=== PATIENT | female | born 1960 | race Caucasian/White ===

== ENCOUNTER 2018-08-14 08:22 | Emergency (ER) | payer MEDICARE, MEDICAID ==
[~2018-08-14] VITALS: Ht 165.1 cm; Wt 68.2 kg
[~2018-08-14 08:22] MED LIST: CYMBALTA30 MG PO; DESERYL100 MG PO; DURAGESIC1 PATCH .2 TRANSDERM; KLONOPIN1 MG PO; OXYCONTIN30 MG PO; VISTARIL50 MG PO
[2018-08-14 08:26] VITALS: BP 127/80; Ht 165.1 cm; Wt 68.2 kg
[2018-08-14 08:55] LABS: BASOPHILS 0.4 % (0-2); EOSINOPHILS 2.8 % (0-7); HEMATOCRIT 41.3 % (36.0-48.0); HEMOGLOBIN 14.2 g/dL (12-16); IMMATURE GRANULOCYTES 0.3 % (0-5); LYMPHOCYTES 28.8 % (15-50); MCH 29.6 pg (26.0-34.0); MCHC 34.4 g/dL (31.0-37.0); MEAN PLATELET VOLUME 9.3 fL (7.4-10.4); MONOCYTES 7.4 % (2-11); NEUTROPHILS 60.3 % (40-80); RDW 13.6 % (11.5-14.5); WBC 7.3 10x3/uL (4.8-10.8)
[2018-08-14 08:56] LABS: PLATELET COUNT 249 10x3/uL (130-400)
[2018-08-14 09:20] LABS: ALBUMIN 3.9 g/dL (3.4-5.0); ALKALINE PHOSPHATASE 108 U/L (46-116); ALT (SGPT) 28 U/L (10-68); CALC OSMOLALITY 278 mosm/kg (275-300); CALCIUM 9.1 mg/dL (8.5-10.1); CARBON DIOXIDE 29.2 mmol/L (21.0-32.0); CHLORIDE - SERUM 104 mmol/L (98-107); CREATININE - SERUM 0.8 mg/dL (0.6-1.3); GLUCOSE 111 mg/dL (74-106); POTASSIUM - SERUM 4.2 mmol/L (3.5-5.1); PROTEIN - SERUM 7.5 g/dL (6.4-8.2); SODIUM 139 mmol/L (136-145); UREA NITROGEN 13 mg/dL (7-18); eGFR NON AFRICAN AMERICAN 77 mL/min (90-120)
--- NOTE | 2018-08-14 09:30 | NUR ---
PT DENIES SUICIDE IDEATION AT THIS. SHE DID STATE THAT YEARS AGO SHE HAD A THOUGHT ONE TIME BECAUSE OF THE PAIN THAT SHE WAS IN. PT STATED, "I WOULD NEVER HURT MYSELF." PT ASSESSED A LOW RISK AND ATTENDING AND DR. LAMA NOTIFIED OF ASSESSMENT RESULTS. RESOURCES GIVEN AND REVIEWED WITH PT. PT VERBALIZED UNDERSTANDING.
== END 2018-08-14 11:27 | disposition home or self-care (01) ==
LOC: D.ER 08:22
PROVIDERS: Family Medicine
DX: Q79.6 Ehlers-Danlos syndromes (principal); R20.2 Paresthesia of skin; V43.52XA Car driver injured in collision with other type car in traffic accident, initial encounter; Y93.89 Activity, other specified; Y92.410 Unspecified street and highway as the place of occurrence of the external cause

== ENCOUNTER 2018-09-17 18:28 | Emergency (ER) | payer MEDICARE, MEDICAID ==
[~2018-09-17] VITALS: Ht 165.1 cm; Wt 61.4 kg
[2018-09-17 18:32] VITALS: BP 117/90; Ht 165.1 cm; Wt 61.4 kg
[2018-09-17 19:21] LABS: BASOPHILS 0.3 % (0-2); EOSINOPHILS 1.1 % (0-7); HEMATOCRIT 42.4 % (36.0-48.0); HEMOGLOBIN 15.1 g/dL (12-16); IMMATURE GRANULOCYTES 0.1 % (0-5); LYMPHOCYTES 35.1 % (15-50); MCHC 35.6 g/dL (31.0-37.0); MCV 84.3 fL (80.0-100.0); MEAN PLATELET VOLUME 10.1 fL (7.4-10.4); MONOCYTES 5.9 % (2-11); NEUTROPHILS 57.5 % (40-80); PLATELET COUNT 271 10x3/uL (130-400); RBC 5.03 10x6/uL (4.00-5.40); RDW 14.4 % (11.5-14.5); WBC 8.8 10x3/uL (4.8-10.8)
[2018-09-17 19:53] LABS: ALBUMIN 4.3 g/dL (3.4-5.0); ALKALINE PHOSPHATASE 104 U/L (46-116); ALT (SGPT) 28 U/L (10-68); BILIRUBIN - TOTAL 0.42 mg/dL (0.2-1.3); CALC OSMOLALITY 274 mosm/kg (275-300); CALCIUM 9.3 mg/dL (8.5-10.1); CARBON DIOXIDE 24.6 mmol/L (21.0-32.0); CHLORIDE - SERUM 103 mmol/L (98-107); CREATININE - SERUM 0.7 mg/dL (0.6-1.3); GLUCOSE 102 mg/dL (74-106); POTASSIUM - SERUM 3.6 mmol/L (3.5-5.1); PROTEIN - SERUM 7.7 g/dL (6.4-8.2); SODIUM 139 mmol/L (136-145); UREA NITROGEN 4 mg/dL (7-18); eGFR NON AFRICAN AMERICAN 90 mL/min (90-120)
[2018-09-17 20:25] LABS: APPEARANCE CLEAR (CLEAR); BILIRUBIN NEGATIVE (NEGATIVE); COLOR YELLOW (YELLOW); GLUCOSE NEGATIVE (NEGATIVE); KETONE NEGATIVE (NEGATIVE); NITRITE NEGATIVE (NEGATIVE); PROTEIN NEGATIVE (NEGATIVE); UROBILINOGEN NORMAL (NORMAL)
[2018-09-17 20:34] LABS: UDS - AMPHET NEGATIVE QUAL (NEGATIVE); UDS - BARB NEGATIVE QUAL (NEGATIVE); UDS - BENZO NEGATIVE QUAL (NEGATIVE); UDS - COCAINE NEGATIVE QUAL (NEGATIVE); UDS - OPIATE NEGATIVE QUAL (NEGATIVE); UDS - PCP NEGATIVE QUAL (NEGATIVE); UDS - THC POSITIVE QUAL (NEGATIVE)
--- NOTE | 2018-09-17 20:36 | NUR ---
DR LAMA NOTIFIED AND REVIEWED PT'S AND ASSESSMENT RESULTS. PT IS A LOW RISK PER DR LAMA. DR LAMA STATED TO GIVE RESOURCES TO PT AT TIME OF DISCHARGE. NO FURTHER ORDERS AT THIS TIME, RESOURCES REVIEWED WITH PT AND SHE VERBALIZED UNDERSTANDING.
== END 2018-09-17 22:41 | disposition home or self-care (01) ==
LOC: D.ER 18:28
PROVIDERS: Family Medicine
DX: F22 Delusional disorders (principal); F32.9 Major depressive disorder, single episode, unspecified

== ENCOUNTER 2018-09-23 07:55 | Emergency (ER) | payer MEDICARE, MEDICAID ==
[~2018-09-23] VITALS: Ht 157.5 cm; Wt 59.1 kg
[2018-09-23 07:57] VITALS: Ht 157.5 cm; Wt 59.1 kg
[2018-09-23 08:25] LABS: BASOPHILS 0.1 % (0-2); EOSINOPHILS 0 % (0-7); HEMATOCRIT 38.4 % (36.0-48.0); HEMOGLOBIN 13.8 g/dL (12-16); IMMATURE GRANULOCYTES 0.2 % (0-5); LYMPHOCYTES 7.2 % (15-50); MCH 29.9 pg (26.0-34.0); MCHC 35.9 g/dL (31.0-37.0); MCV 83.3 fL (80.0-100.0); MEAN PLATELET VOLUME 10.1 fL (7.4-10.4); MONOCYTES 3.3 % (2-11); NEUTROPHILS 89.2 % (40-80); PLATELET COUNT 221 10x3/uL (130-400); RBC 4.61 10x6/uL (4.00-5.40); RDW 14.3 % (11.5-14.5); WBC 10.2 10x3/uL (4.8-10.8)
[2018-09-23 08:37] LABS: ALBUMIN 3.9 g/dL (3.4-5.0); ALKALINE PHOSPHATASE 90 U/L (46-116); ALT (SGPT) 41 U/L (10-68); CALC OSMOLALITY 282 mosm/kg (275-300); CALCIUM 9.2 mg/dL (8.5-10.1); CARBON DIOXIDE 21.7 mmol/L (21.0-32.0); CHLORIDE - SERUM 102 mmol/L (98-107); CREATININE - SERUM 0.8 mg/dL (0.6-1.3); GLUCOSE 126 mg/dL (74-106); PROTEIN - SERUM 7.5 g/dL (6.4-8.2); SODIUM 140 mmol/L (136-145); UREA NITROGEN 17 mg/dL (7-18); eGFR NON AFRICAN AMERICAN 77 mL/min (90-120)
[2018-09-23 08:47] LABS: LIPASE 142 U/L (73-393); THYROID STIMULATING HORMONE 1.71 uIU/mL (0.36-3.74); TROPONIN-I < 0.017 ng/mL (0.000-0.060)
--- NOTE | 2018-09-23 09:16 | NUR ---
PT IS HYPERVERBAL BUT WAS ABLE TO UNDERSTAND MY QUESTIONS. PT WAS GIVEN SUICIDE PREVENTION RESOURCES AND VERBALIZED UNDERSTANDING. PT DENIES SI AT THIS TIME.
--- NOTE | 2018-09-23 09:17 | NUR ---
PT STATED THAT SHE HAD A HX OF DEPRESSION AND IS ON MEDICATION. PT STATED THAT HER MEDICATION IS WORKING AND SHE RUSTAM ANY OTHER NEEDS AT THE TIME.
[2018-09-23 09:26] LABS: UDS - AMPHET NEGATIVE QUAL (NEGATIVE); UDS - BARB NEGATIVE QUAL (NEGATIVE); UDS - BENZO NEGATIVE QUAL (NEGATIVE); UDS - COCAINE NEGATIVE QUAL (NEGATIVE); UDS - OPIATE NEGATIVE QUAL (NEGATIVE); UDS - PCP NEGATIVE QUAL (NEGATIVE); UDS - THC POSITIVE QUAL (NEGATIVE)
[2018-09-23 09:35] LABS: APPEARANCE CLEAR (CLEAR); BILIRUBIN NEGATIVE (NEGATIVE); COLOR YELLOW (YELLOW); GLUCOSE NEGATIVE (NEGATIVE); KETONE MODERATE mg/dL (NEGATIVE); NITRITE NEGATIVE (NEGATIVE); PROTEIN TRACE mg/dL (NEGATIVE); SPECIFIC GRAVITY 1.015 (1.005-1.020); UROBILINOGEN NORMAL (NORMAL)
[2018-09-23 09:36] LABS: BACTERIA MODERATE /hpf (NONE SEEN); EPITHELIAL CELLS OCC /hpf (0-5); HYALINE CAST 0-5 /lpf (NONE SEEN); MUCUS <1+ /lpf (NONE SEEN); RED CELLS - URINE OCC /hpf (0-5); WHITE CELLS - URINE OCC /hpf (0-5)
[2018-09-23 10:23] VITALS: BP 118/68
== END 2018-09-23 10:23 | disposition home or self-care (01) ==
LOC: D.ER 07:55
PROVIDERS: Family Medicine
DX: F22 Delusional disorders (principal); R19.5 Other fecal abnormalities; E87.6 Hypokalemia

== ENCOUNTER 2018-09-23 11:47 | Emergency (ER) | payer MEDICARE, MEDICAID ==
[~2018-09-23] VITALS: Ht 157.5 cm; Wt 72.3 kg
[2018-09-23 11:58] VITALS: BP 118/57; Ht 157.5 cm; Wt 72.3 kg
== END 2018-09-23 13:30 | disposition home or self-care (01) ==
LOC: D.ER 11:47
DX: F22 Delusional disorders (principal); F45.9 Somatoform disorder, unspecified

== ENCOUNTER 2018-09-23 14:11 | Emergency (ER) | payer MEDICARE, MEDICAID ==
[~2018-09-23] VITALS: Ht 157.5 cm; Wt 72.7 kg
[2018-09-23 15:24] VITALS: Ht 157.5 cm; Wt 72.7 kg
[2018-09-23 16:13] VITALS: BP 136/75
== END 2018-09-23 16:06 | disposition home or self-care (01) ==
LOC: D.ER 14:11
DX: F45.9 Somatoform disorder, unspecified (principal); F42.4 Excoriation (skin-picking) disorder; R19.5 Other fecal abnormalities; F22 Delusional disorders

== ENCOUNTER 2018-09-23 21:49 | Emergency (ER) | payer MEDICARE, MEDICAID ==
[~2018-09-23] VITALS: Ht 157.5 cm; Wt 59.1 kg
[2018-09-23 21:55] VITALS: BP 127/75; Ht 157.5 cm; Wt 59.1 kg
[2018-09-23 23:00] LABS: BASOPHILS 0.2 % (0-2); EOSINOPHILS 0.7 % (0-7); HEMATOCRIT 38.1 % (36.0-48.0); HEMOGLOBIN 13.6 g/dL (12-16); IMMATURE GRANULOCYTES 0.2 % (0-5); LYMPHOCYTES 20.1 % (15-50); MCH 29.8 pg (26.0-34.0); MCHC 35.7 g/dL (31.0-37.0); MCV 83.4 fL (80.0-100.0); MEAN PLATELET VOLUME 9.9 fL (7.4-10.4); NEUTROPHILS 71.8 % (40-80); PLATELET COUNT 221 10x3/uL (130-400); RBC 4.57 10x6/uL (4.00-5.40); RDW 14.5 % (11.5-14.5); WBC 8.3 10x3/uL (4.8-10.8)
[2018-09-23 23:15] LABS: ALKALINE PHOSPHATASE 90 U/L (46-116); ALT (SGPT) 38 U/L (10-68); BILIRUBIN - TOTAL 0.61 mg/dL (0.2-1.3); CALC OSMOLALITY 282 mosm/kg (275-300); CHLORIDE - SERUM 104 mmol/L (98-107); CREATININE - SERUM 0.7 mg/dL (0.6-1.3); GLUCOSE 95 mg/dL (74-106); MAGNESIUM - SERUM 2.2 mg/dL (1.8-2.4); POTASSIUM - SERUM 3.4 mmol/L (3.5-5.1); PROTEIN - SERUM 7.4 g/dL (6.4-8.2); SODIUM 141 mmol/L (136-145); UREA NITROGEN 18 mg/dL (7-18); eGFR NON AFRICAN AMERICAN 90 mL/min (90-120)
== END 2018-09-23 23:47 | disposition home or self-care (01) ==
LOC: D.ER 21:49
PROVIDERS: Emergency Medicine
DX: F22 Delusional disorders (principal); R44.0 Auditory hallucinations; R44.1 Visual hallucinations

== ENCOUNTER 2018-10-29 20:33 | Emergency (ER) | payer MEDICARE, MEDICAID ==
[~2018-10-29] VITALS: Ht 157.5 cm; Wt 79.5 kg
[2018-10-29 20:36] VITALS: BP 130/82; Ht 157.5 cm; Wt 79.5 kg
[2018-10-29 21:24] LABS: UDS - AMPHET NEGATIVE QUAL (NEGATIVE); UDS - BARB NEGATIVE QUAL (NEGATIVE); UDS - BENZO NEGATIVE QUAL (NEGATIVE); UDS - COCAINE NEGATIVE QUAL (NEGATIVE); UDS - OPIATE NEGATIVE QUAL (NEGATIVE); UDS - PCP NEGATIVE QUAL (NEGATIVE); UDS - THC NEGATIVE QUAL (NEGATIVE)
[2018-10-29 21:25] LABS: BASOPHILS 0.3 % (0-2); EOSINOPHILS 2.1 % (0-7); HEMATOCRIT 36.8 % (36.0-48.0); HEMOGLOBIN 12.8 g/dL (12-16); IMMATURE GRANULOCYTES 0.1 % (0-5); LYMPHOCYTES 33.5 % (15-50); MCH 30.8 pg (26.0-34.0); MCHC 34.8 g/dL (31.0-37.0); MCV 88.5 fL (80.0-100.0); MEAN PLATELET VOLUME 9.4 fL (7.4-10.4); MONOCYTES 7.2 % (2-11); NEUTROPHILS 56.8 % (40-80); RBC 4.16 10x6/uL (4.00-5.40); RDW 15.5 % (11.5-14.5); WBC 7.8 10x3/uL (4.8-10.8)
[2018-10-29 21:26] LABS: PLATELET COUNT 277 10x3/uL (130-400)
[2018-10-29 21:30] LABS: APPEARANCE CLEAR (CLEAR); BILIRUBIN NEGATIVE (NEGATIVE); COLOR STRAW (YELLOW); GLUCOSE NEGATIVE (NEGATIVE); KETONE NEGATIVE (NEGATIVE); NITRITE NEGATIVE (NEGATIVE); PROTEIN NEGATIVE (NEGATIVE); UROBILINOGEN NORMAL (NORMAL)
[2018-10-29 21:31] LABS: ALBUMIN 4.1 g/dL (3.4-5.0); ALKALINE PHOSPHATASE 114 U/L (46-116); ALT (SGPT) 33 U/L (10-68); BACTERIA MODERATE /hpf (NONE SEEN); BILIRUBIN - TOTAL 0.26 mg/dL (0.2-1.3); CALC OSMOLALITY 279 mosm/kg (275-300); CALCIUM 9.4 mg/dL (8.5-10.1); CARBON DIOXIDE 24.6 mmol/L (21.0-32.0); CHLORIDE - SERUM 105 mmol/L (98-107); CREATININE - SERUM 0.7 mg/dL (0.6-1.3); EPITHELIAL CELLS 0-5 /hpf (0-5); GLUCOSE 98 mg/dL (74-106); MAGNESIUM - SERUM 2.2 mg/dL (1.8-2.4); POTASSIUM - SERUM 3.8 mmol/L (3.5-5.1); PROTEIN - SERUM 7.7 g/dL (6.4-8.2); RED CELLS - URINE OCC /hpf (0-5); SODIUM 140 mmol/L (136-145); UREA NITROGEN 16 mg/dL (7-18); WHITE CELLS - URINE 0-5 /hpf (0-5); eGFR NON AFRICAN AMERICAN 90 mL/min (90-120)
--- NOTE | 2018-10-29 23:28 | NUR ---
PATIENT IS NOT SUICIDAL, DENIES BEING SUICIDAL FOR AWHILE. PATIENT IS VERY AGITATED AND DOES NOT WANT TO ANSWER QUESTIONS HOWEVER SHE SAID AGGRESSIVELY, "I AM NOT SUICIDAL". DENIED THE SUICIDE PREVENTION RESOURCE SHEET.
== END 2018-10-29 23:33 | disposition home or self-care (01) ==
LOC: D.ER 20:33
PROVIDERS: Emergency Medicine
DX: R45.851 Suicidal ideations (principal); F10.10 Alcohol abuse, uncomplicated; F32.9 Major depressive disorder, single episode, unspecified

== ENCOUNTER 2018-10-30 00:37 | Emergency (ER) | payer MEDICARE, MEDICAID ==
[~2018-10-30] VITALS: Ht 157.5 cm; Wt 56.8 kg
[2018-10-30 00:43] VITALS: Ht 157.5 cm; Wt 56.8 kg
== END 2018-10-30 01:22 | disposition home or self-care (01) ==
LOC: D.ER 00:37
DX: F22 Delusional disorders (principal)

== ENCOUNTER 2018-11-18 19:14 | Emergency (ER) | payer MEDICARE, MEDICAID ==
[~2018-11-18] VITALS: Ht 157.5 cm; Wt 68.2 kg
[2018-11-18 19:26] VITALS: Ht 157.5 cm; Wt 68.2 kg
[2018-11-18] MEDS ORDERED: NEURONTIN800 MG PO (19:28)
[2018-11-18] MEDS ORDERED: MORPHINE SULFAT30 MG PO (19:28)
[2018-11-18] MEDS ORDERED: CYMBALTA60 MG PO (19:29)
[2018-11-18 19:52] LABS: BASOPHILS 0.2 % (0-2); EOSINOPHILS 1.2 % (0-7); HEMATOCRIT 35.2 % (36.0-48.0); HEMOGLOBIN 12.3 g/dL (12-16); IMMATURE GRANULOCYTES 0.1 % (0-5); LYMPHOCYTES 23.3 % (15-50); MCH 31.2 pg (26.0-34.0); MCHC 34.9 g/dL (31.0-37.0); MCV 89.3 fL (80.0-100.0); MEAN PLATELET VOLUME 9.4 fL (7.4-10.4); MONOCYTES 6.5 % (2-11); NEUTROPHILS 68.7 % (40-80); PLATELET COUNT 234 10x3/uL (130-400); RBC 3.94 10x6/uL (4.00-5.40); RDW 14.2 % (11.5-14.5); WBC 8.3 10x3/uL (4.8-10.8)
[2018-11-18 20:06] LABS: ALBUMIN 3.8 g/dL (3.4-5.0); ALKALINE PHOSPHATASE 98 U/L (46-116); ALT (SGPT) 25 U/L (10-68); BILIRUBIN - TOTAL 0.51 mg/dL (0.2-1.3); CALC OSMOLALITY 286 mosm/kg (275-300); CALCIUM 9.3 mg/dL (8.5-10.1); CARBON DIOXIDE 24.8 mmol/L (21.0-32.0); CHLORIDE - SERUM 107 mmol/L (98-107); CREATININE - SERUM 0.6 mg/dL (0.6-1.3); GLUCOSE 89 mg/dL (74-106); POTASSIUM - SERUM 3.7 mmol/L (3.5-5.1); PROTEIN - SERUM 7.5 g/dL (6.4-8.2); SODIUM 145 mmol/L (136-145); UREA NITROGEN 10 mg/dL (7-18); eGFR NON AFRICAN AMERICAN > 90 mL/min (90-120)
[2018-11-18 20:07] LABS: AMYLASE - SERUM 26 U/L (25-115); LIPASE 103 U/L (73-393)
[2018-11-18 20:26] LABS: TROPONIN-I < 0.017 ng/mL (0.000-0.060)
[2018-11-18 20:40] LABS: APPEARANCE CLEAR (CLEAR); BILIRUBIN NEGATIVE (NEGATIVE); COLOR YELLOW (YELLOW); GLUCOSE NEGATIVE (NEGATIVE); KETONE LARGE mg/dL (NEGATIVE); NITRITE NEGATIVE (NEGATIVE); PROTEIN NEGATIVE (NEGATIVE); SPECIFIC GRAVITY 1.025 (1.005-1.020); UROBILINOGEN NORMAL (NORMAL)
[2018-11-18 20:42] LABS: BACTERIA MODERATE /hpf (NONE SEEN); MUCUS >1+ /lpf (NONE SEEN); RED CELLS - URINE 0-5 /hpf (0-5)
[2018-11-18] MEDS ORDERED: MACROBID100 MG PO (21:14)
[2018-11-18] MEDS ORDERED: TALWIN NX1 TAB PO (21:19)
[2018-11-18 21:53] VITALS: BP 118/70
== END 2018-11-18 21:55 | disposition home or self-care (01) ==
LOC: D.ER 19:14
PROVIDERS: Family Medicine
DX: N39.0 Urinary tract infection, site not specified (principal); R10.9 Unspecified abdominal pain; F17.200 Nicotine dependence, unspecified, uncomplicated